=== PATIENT | male | born 1985 | race African-American/Black ===

== ENCOUNTER 2016-12-03 23:58 | Emergency (ER) | payer MEDICAID, OTHER ==
[~2016-12-03] VITALS: Ht 167.6 cm; Wt 65.0 kg
[~2016-12-03 23:58] MED LIST: CIPR500T4 PO; PERC5TAB12 PO
[2016-12-03 23:59] VITALS: BP 161/95; PULSE 66; RESP 14; TEMP 98.7; O2SAT 99
--- NOTE | 2016-12-04 00:23 | PD ---
HPI Chief Complaint: Flank/Kidney Pain Time Seen by Provider: 00:22 Travel History International Travel<30 days: No Contact w/Intl Traveler<30days: No Traveled to known affect area: No History of Present Illness HPI 31-year-old male with history of kidney stone and lithotripsy, presents to the emergency department for evaluation of left flank pain. Anus a constant, sharp , stabbing. This has been going on for the last 2 days. Patient has also had burning with urination. Denies any penile discharge. Patient states he is in a monogamous sexual relationship. Denies any abdominal pain. No nausea or vomiting. Patient has no other symptoms to report. PFSH Past Medical History Medical History: Denies Significant Hx Cancer: No Cardiovascular Problems: No Diabetes: No Diminished Hearing: No Genitourinary: No Hepatitis: No Hiatal Hernia: No Immune Disorder: No Musculoskeletal: No Neurologic: No Psychiatric: No Reproductive: No Respiratory: No Thyroid Disease: No Past Surgical History AICD: No Body Medical Devices: NONE Joint Replacement: No Pacemaker: No Social History Alcohol Use: No Tobacco Use: Yes (1/2) Substance Use: Yes (MARIJUANA) Allergies-Medications (Allergen,Severity, Reaction): Coded Allergies: No Known Allergies (Unverified , 12/04/16) Reported Meds & Prescriptions Reported Meds & Active Scripts Active Reported Percocet 5-325 mg (Oxycodone/Acetaminophen) 1 Tab 1 Tab PO Q6H PRN Cipro (Ciprofloxacin HCl) 500 Mg Tab 500 Mg PO BID Review of Systems Except as stated in HPI: all other systems reviewed are Neg Physical Exam Narrative GENERAL: Well-nourished male patient, ambulatory and in no acute distress SKIN: Focused skin assessment warm/dry. HEAD: Atraumatic. Normocephalic. EYES: Pupils equal and round. No scleral icterus. No injection or drainage. ENT: No nasal bleeding or discharge. Mucous membranes pink and moist. NECK: Trachea midline. No JVD. CARDIOVASCULAR: Regular rate and rhythm. No murmur appreciated. RESPIRATORY: No accessory muscle use. Clear to auscultation. Breath sounds equal bilaterally. GASTROINTESTINAL: Abdomen soft, non-tender, nondistended. Hepatic and splenic margins not palpable. MUSCULOSKELETAL: No obvious deformities. No clubbing. No cyanosis. No edema. Left-sided CVA tenderness. NEUROLOGICAL: Awake and alert. No obvious cranial nerve deficits. Motor grossly within normal limits. Normal speech. PSYCHIATRIC: Appropriate mood and affect; insight and judgment normal. Data Data Last Documented VS Vital Signs Date Time Temp Pulse Resp B/P Pulse Ox O2 Delivery O2 Flow Rate FiO2 12/03/16 23:59 98.7 66 14 161/95 99 Room Air Orders Iv Access Insert/Monitor (12/04/16 00:22) Complete Blood Count With Diff (12/04/16 00:22) Basic Metabolic Panel (Bmp) (12/04/16 00:22) Urinalysis - C+S If Indicated (12/04/16 00:22) Ketorolac Inj (Toradol Inj) (12/04/16 00:30) Sodium Chlor 0.9% 1000 Ml Inj (Ns 1000 M (12/04/16 00:30) Ct Abd/Pel W/O Iv Contrast (12/04/16 ) Urine Culture (12/04/16 00:30) Gc And Chlamydia Pcr (12/04/16 00:59) Ceftriaxone Inj (Rocephin Inj) (12/04/16 01:45) Azithromycin (Zithromax) (12/04/16 01:45) Labs Laboratory Tests Test 12/04/16 00:30 White Blood Count 8.4 TH/MM3 Red Blood Count 5.04 MIL/MM3 Hemoglobin 15.1 GM/DL Hematocrit 45.5 % Mean Corpuscular Volume 90.2 FL Mean Corpuscular Hemoglobin 30.0 PG Mean Corpuscular Hemoglobin 33.3 % Concent Red Cell Distribution Width 13.3 % Platelet Count 208 TH/MM3 Mean Platelet Volume 8.2 FL Neutrophils (%) (Auto) 52.9 % Lymphocytes (%) (Auto) 31.8 % Monocytes (%) (Auto) 11.0 % Eosinophils (%) (Auto) 3.5 % Basophils (%) (Auto) 0.8 % Neutrophils # (Auto) 4.5 TH/MM3 Lymphocytes # (Auto) 2.7 TH/MM3 Monocytes # (Auto) 0.9 TH/MM3 Eosinophils # (Auto) 0.3 TH/MM3 Basophils # (Auto) 0.1 TH/MM3 CBC Comment DIFF FINAL Differential Comment Urine Color YELLOW Urine Turbidity CLOUDY Urine pH 7.0 Urine Specific [place] 1.023 Urine Protein TRACE mg/dL Urine Glucose (UA) NEG mg/dL Urine Ketones NEG mg/dL Urine Occult Blood NEG Urine Nitrite NEG Urine Bilirubin NEG Urine Urobilinogen 2.0 MG/DL Urine Leukocyte Esterase SMALL Urine RBC 2 /hpf Urine WBC 12 /hpf Urine Squamous Epithelial <1 /hpf Cells Urine Amorphous Sediment RARE Urine Mucus FEW /lpf Microscopic Urinalysis Comment CULTURE INDICATED Sodium Level 142 MEQ/L Potassium Level 3.9 MEQ/L Chloride Level 106 MEQ/L Carbon Dioxide Level 28.9 MEQ/L Anion Gap 7 MEQ/L Blood Urea Nitrogen 16 MG/DL Creatinine 1.02 MG/DL Estimat Glomerular Filtration 102 ML/MIN Rate Random Glucose 99 MG/DL Calcium Level 8.9 MG/DL Chlamydia trachomatis DNA NOT DETECTED (PCR) Neisseria gonorrhoeae DNA NOT DETECTED (PCR) MDM Medical Decision Making Medical Screen Exam Complete: Yes Emergency Medical Condition: Yes Medical Record Reviewed: Yes Differential Diagnosis UTI versus renal calculi versus STD versus muscle strain Narrative Course 31-year-old male presents to the emergency department for evaluation left flank pain. Patient does have left-sided CVA tenderness. CBC and BMP are without acute concern. Urinalysis is cloudy with small leukocyte esterase, 12 WBC, few mucus, culture is indicated. GC PCR has been sent. Patient will be treated empirically. He is encouraged to follow-up with primary care provider. He agrees to return immediately with any acute worsening of symptoms. Diagnosis Primary Impression: Flank pain Additional Impression: Dysuria Referrals: Primary Care Physician Patient Instructions: Dysuria (ED), Flank Pain (ED), General Instructions Additional Instructions: Maintain adequate oral hydration Follow-up with primary care provider Return immediately with any acute worsening of symptoms Med/Other Pt SpecificInfo: No Meds Exist/No RX given Disposition: 01 DISCHARGE HOME Condition: Stable Juana Desai LESTER December 04, 2016 00:22
[2016-12-04] MEDS ORDERED: KETOROLAC TROMETHAMINE 30 MG/ML (IVP) VIAL IV PUSH ONE (00:30)
[2016-12-04] MEDS ORDERED: SODIUM CHLOR 0.9% 1000 ML INJ 1,000 ML IV ONE (00:30)
[2016-12-04 00:47] LABS: AUTOMATED NEUTROPHIL # 4.5 TH/MM3 (1.8-7.7); BASOPHIL # 0.1 TH/MM3 (0-0.2); BASOPHIL % 0.8 % (0.0-2.0); EOSINOPHIL # 0.3 TH/MM3 (0-0.4); EOSINOPHIL % 3.5 % (0.0-4.0); HEMATOCRIT 45.5 % (39.0-51.0); HEMO FLAGS DIFF FINAL; LYMPH % 31.8 % (9.0-44.0); LYMPHOCYTE # 2.7 TH/MM3 (1.0-4.8); MEAN CELL VOLUME 90.2 FL (80.0-100.0); MEAN CORPUSCULAR HGB CONC 33.3 % (32.0-36.0); NEUT % 52.9 % (16.0-70.0); PLATELET COUNT 208 TH/MM3 (150-450); RED BLOOD COUNT 5.04 MIL/MM3 (4.50-5.90); RED CELL DISTRIBUTION WIDTH 13.3 % (11.6-17.2); WHITE BLOOD COUNT 8.4 TH/MM3 (4.0-11.0)
[2016-12-04 00:54] LABS: BLOOD, URINE NEG (NEG); COMMENT (UR) CULTURE INDICATED; CULTURE IF INDICATED CULTURE INDICATED; GLUCOSE,URINE NEG (NEG); KETONE, URINE NEG (NEG); MUCUS URINE FEW /lpf (OCC); NITRITE,URINE NEG (NEG); SQUAMOUS EPITHELIAL CELL URINE <1 /hpf (0-5); URINE COLOR YELLOW (YELLW/STRAW)
[2016-12-04 01:13] LABS: BICARBONATE 28.9 MEQ/L (21.0-32.0); POTASSIUM 3.9 MEQ/L (3.5-5.1)
--- NOTE | 2016-12-04 01:31 | RADRPT ---
EXAM DATE/TIME: 12/04/2016 01:16 [facility] COMPARISON: No previous studies available for comparison. INDICATIONS : Left flank pain past 2 days. ORAL CONTRAST: No oral contrast ingested. RADIATION DOSE: 4.66 CTDIvol (mGy) MEDICAL HISTORY : Renal calculi. SURGICAL HISTORY : None. ENCOUNTER: Initial ACUITY: 2 days PAIN SCALE: 6/10 LOCATION: Left flank TECHNIQUE: Volumetric scanning of the abdomen and pelvis was performed. Using automated exposure control and ad justment of the mA and/or kV according to patient size, radiation dose was kept as low as reasonably achievable to obtain optimal diagnostic quality images. The lack of IV contrast limits the diagnosis for certain organ pathology. FINDINGS: LOWER LUNGS: The visualized lower lungs are clear. LIVER: Homogeneous density without lesion. There is no dilation of the biliary tree. No calcified gallston es. SPLEEN: Normal size without lesion. PANCREAS: Within normal limits. KIDNEYS: Normal in size and shape. There is no mass, stone, or hydronephrosis. ADRENAL GLANDS: Within normal limits. VASCULAR: There is no aortic aneurysm. BOWEL/MESENTERY: The stomach, small bowel, and colon demonstrate no acute abnormality. There is no free intraperitone al air or fluid. The appendix is unremarkable. There is stool in the colon. No inflammatory changes. ABDOMINAL WALL: Within normal limits. RETROPERITONEUM: There is no lymphadenopathy. BLADDER: No wall thickening or mass. REPRODUCTIVE: Within normal limits. INGUINAL: There is no lymphadenopathy or hernia. MUSCULOSKELETAL: Within normal limits for patient age. CONCLUSION: 1. No evidence of calcified renal stones or hydronephrosis. 2. Unremarkable examination for patient's age. Johann Zuluaga MD on December 04, 2016 at 1:28 Board Certified Radiologist. This report was verified electronically.
[2016-12-04] MEDS ORDERED: AZITHROMYCIN 250 MG TAB PO ONE (01:45)
[2016-12-04] MEDS ORDERED: cefTRIAXone 250 MG VIAL IM ONE (01:45)
[2016-12-04 03:13] LABS: CHLAMYDIA PCR NOT DETECTED (NOT DETECT); NEISSERIA PCR NOT DETECTED (NOT DETECT)
== END 2016-12-04 02:22 | disposition home or self-care (01) ==
LOC: NEPK 23:58
DX: R10.9 Unspecified abdominal pain (principal); R30.0 Dysuria; F17.210 Nicotine dependence, cigarettes, uncomplicated; F12.90 Cannabis use, unspecified, uncomplicated
CPT/HCPCS: 74176; 80048; 81001; 85025; 87086; 87491; 87591; 96361; 96372; 96374; 99284; J0696; J1885; J7030

== ENCOUNTER 2017-02-26 10:07 | Emergency (ER) | payer MEDICAID ==
[2017-02-26 10:14] VITALS: BP 128/62; PULSE 81; RESP 15; TEMP 98.4; O2SAT 99
[2017-02-26] MEDS ORDERED: AZITHROMYCIN 250 MG TAB PO ONE (10:30)
[2017-02-26] MEDS ORDERED: SODIUM CHLORIDE 0.9% FLUSH 10 ML FLUSH IVF PRN (10:30)
[2017-02-26] MEDS ORDERED: LIDOCAINE HCL 1% 50 ML VIAL XX ONE (10:30)
--- NOTE | 2017-02-26 10:30 | PD ---
HPI Chief Complaint: Complaint Time Seen by Provider: 10:21 Travel History International Travel<30 days: No Contact w/Intl Traveler<30days: No Traveled to known affect area: No History of Present Illness HPI 32-year-old Afro-[place] male presents the emergency department with history of dysuria, mild bilateral flank pain, and suprapubic tenderness and cramping, as well as bilateral mild tenderness to the testicles. Patient denies recent change in sexual partner. He is blaming his symptoms on lifting something heavy at work. Patient has no fever, chills, nausea, vomiting, or diarrhea. Patient has no known drug allergies. PFSH Past Medical History Cancer: No Cardiovascular Problems: No Diabetes: No Diminished Hearing: No Genitourinary: No Hepatitis: No Hiatal Hernia: No Immune Disorder: No Musculoskeletal: No Neurologic: No Psychiatric: No Reproductive: No Respiratory: No Thyroid Disease: No Past Surgical History AICD: No Body Medical Devices: NONE Joint Replacement: No Pacemaker: No Social History Alcohol Use: No Tobacco Use: Yes (1/2) Substance Use: Yes (MARIJUANA) Allergies-Medications (Allergen,Severity, Reaction): Coded Allergies: No Known Allergies (Unverified , 02/26/17) Reported Meds & Prescriptions Reported Meds & Active Scripts Active Pyridium (Phenazopyridine HCl) 100 Mg Tab 100 Mg PO Q8HR Cephalexin 500 Mg Cap 500 Mg PO Q8H Review of Systems Except as stated in HPI: all other systems reviewed are Neg General / Constitutional: No: Fever Eyes: No: Visual changes HENT: No: Headaches Cardiovascular: No: Chest Pain or Discomfort Respiratory: No: Shortness of Breath Gastrointestinal: No: Abdominal Pain Genitourinary: Positive: Urgency, Dysuria, Flank Pain, Other (mild bilateral testicular pain) Musculoskeletal: No: Pain Skin: No Rash Neurologic: No: Weakness Psychiatric: No: Depression Endocrine: No: Polydipsia Hematologic/Lymphatic: No: Easy Bruising Physical Exam Narrative GENERAL: Patient appears no acute distress. SKIN: Warm and dry. Normal color. Normal turgor. No rashes appreciated on the genitalia. HEAD: Atraumatic. Normocephalic. EYES: Pupils equal and round. No scleral icterus. No injection or drainage. ENT: No nasal bleeding or discharge. Mucous membranes pink and moist. NECK: Trachea midline. No JVD. CARDIOVASCULAR: Regular rate and rhythm. RESPIRATORY: No accessory muscle use. Clear to auscultation. Breath sounds equal bilaterally. GASTROINTESTINAL: Abdomen soft, non-tender, nondistended. Hepatic and splenic margins not palpable. Mild bilateral CVA tenderness. GENITAL: No obvious hernia. Patient has bilateral mild tenderness to the epididymis, but no testicular swelling or tenderness. Penis is normal without discharge or rash. MUSCULOSKELETAL: Extremities without clubbing, cyanosis, or edema. No obvious deformities. NEUROLOGICAL: Awake and alert. No obvious cranial nerve deficits. Motor grossly within normal limits. Five out of 5 muscle strength in the arms and legs. Normal speech. PSYCHIATRIC: Appropriate mood and affect; insight and judgment normal. Data Data Last Documented VS Vital Signs Date Time Temp Pulse Resp B/P Pulse Ox O2 Delivery O2 Flow Rate FiO2 02/26/17 10:14 98.4 81 15 128/62 99 Orders Urinalysis - C+S If Indicated (02/26/17 10:18) Gc And Chlamydia Pcr (02/26/17 10:18) Sodium Chloride 0.9% Flush (Ns Flush) (02/26/17 10:30) Azithromycin (Zithromax) (02/26/17 10:30) Ceftriaxone Inj (Rocephin Inj) (02/26/17 10:30) Lidocaine 1% Inj (50 Ml) (Xylocaine 1% I (02/26/17 10:30) Urine Culture (02/26/17 10:25) Labs Laboratory Tests Test 02/26/17 10:25 Urine Color YELLOW Urine Turbidity HAZY Urine pH 6.0 Urine Specific [place] 1.025 Urine Protein TRACE mg/dL Urine Glucose (UA) NEG mg/dL Urine Ketones NEG mg/dL Urine Occult Blood NEG Urine Nitrite NEG Urine Bilirubin NEG Urine Urobilinogen LESS THAN 2.0 MG/DL Urine Leukocyte Esterase LARGE Urine RBC 5 /hpf Urine WBC 19 /hpf Urine Renal Epithelial Cells <1 /hpf Urine Mucus FEW /lpf Microscopic Urinalysis Comment CULTURE INDICATED MDM Medical Decision Making Medical Screen Exam Complete: Yes Emergency Medical Condition: Yes Differential Diagnosis Urinary tract infection. Dysuria. Possible STD. Urinary retention. Prostatitis. Narrative Course Urinalysis is sent to the lab. Gonorrhea and chlamydia testing is sent. Patient is given Rocephin 1 g IM. Patient is given azithromycin 1 g by mouth. Urinalysis shows signs of urinary tract infection. Urinary culture is placed. GC testing is still pending. Patient is treated with Keflex 500 mg 3 times a day for 10 days. Patient is also given Pyridium 100 mg 3 times a day when necessary dysuria. # 15. Patient is to follow-up with [facility] or [facility]. Patient can return to emergency Department with worsening symptoms as necessary. Diagnosis Primary Impression: Dysuria Additional Impression: Urinary tract infection Qualified Code: N30.00 - Acute cystitis without hematuria Referrals: [facility] 1 week [facility] 1 week Patient Instructions: General Instructions, Urinary Tract Infection in Men (DC) Additional Instructions: Gonorrhea and chlamydia testing is sent. Patient is given Rocephin 1 g IM. Patient is given azithromycin 1 g by mouth. Urinalysis shows signs of urinary tract infection. Urinary culture is placed. GC testing is still pending. Patient is treated with Keflex 500 mg 3 times a day for 10 days. Patient is also given Pyridium 100 mg 3 times a day when necessary dysuria. # 15. Patient is to follow-up with [facility] or [facility]. Patient can return to emergency Department with worsening symptoms as necessary. Med/Other Pt SpecificInfo: Prescription(s) given Scripts Phenazopyridine (Pyridium)100 Mg Abs060 Mg PO Q8HR #15 TAB Prov:Laura Ray MD 02/26/17 Cephalexin 500 Mg Bor459 Mg PO Q8H #30 CAP Prov:Laura Ray MD 02/26/17 Disposition: 01 DISCHARGE HOME Condition: Stable Juan Vickers Feb 26, 2017 10:30
[2017-02-26 10:49] LABS: BLOOD, URINE NEG (NEG); GLUCOSE,URINE NEG (NEG); KETONE, URINE NEG (NEG); MUCUS URINE FEW /lpf (OCC); NITRITE,URINE NEG (NEG); RENAL EPITHELIAL CELLS <1 /hpf; URINE COLOR YELLOW (YELLW/STRAW)
[2017-02-26 10:50] LABS: COMMENT (UR) CULTURE INDICATED; CULTURE IF INDICATED CULTURE INDICATED
[2017-02-26] MEDS ORDERED: CEPH500C PO (10:54)
[2017-02-26] MEDS ORDERED: PHEN0.4T PO (10:54)
[2017-02-26 13:11] LABS: CHLAMYDIA PCR NOT DETECTED (NOT DETECT); NEISSERIA PCR NOT DETECTED (NOT DETECT)
== END 2017-02-26 11:37 | disposition home or self-care (01) ==
LOC: NEPD 10:07
DX: N30.00 Acute cystitis without hematuria (principal)
CPT/HCPCS: 81001; 87086; 87491; 87591; 96372; 99284; J0696

== ENCOUNTER 2017-06-22 20:45 | Emergency (ER) | payer SELFPAY ==
[~2017-06-22 20:45] MED LIST changes: +CEPH500C PO; -CIPR500T4 PO; -PERC5TAB12 PO; +PHEN0.4T PO
[2017-06-22 20:47] VITALS: BP 147/77; PULSE 87; RESP 16; TEMP 97.9; O2SAT 100
--- NOTE | 2017-06-22 21:43 | RADRPT ---
EXAM DATE/TIME: 06/22/2017 21:14 [facility] COMPARISON: CT ABDOMEN & PELVIS W/O CONTRAST, December 04, 2016, 1:16. INDICATIONS : Left flank pain for three days. ORAL CONTRAST: No oral contrast ingested. RADIATION DOSE: 6.71 CTDIvol (mGy) MEDICAL HISTORY : Renal calculi. SURGICAL HISTORY : lithrotripsy ENCOUNTER: Initial ACUITY: 3 days PAIN SCALE: 8/10 LOCATION: Left flank TECHNIQUE: Volumetric scanning of the abdomen and pelvis was performed. Using automated exposure control and ad justment of the mA and/or kV according to patient size, radiation dose was kept as low as reasonably achievable to obtain optimal diagnostic quality images. DICOM format image data is available electro nically for review and comparison. FINDINGS: LOWER LUNGS: The visualized lower lungs are clear. LIVER: Homogeneous density without lesion. There is no dilation of the biliary tree. No calcified gallston es. SPLEEN: Normal size without lesion. PANCREAS: Within normal limits. KIDNEYS: Normal in size and shape. There is no mass, stone, or hydronephrosis. ADRENAL GLANDS: Within normal limits. VASCULAR: There is no aortic aneurysm. BOWEL/MESENTERY: The stomach, small bowel, and colon demonstrate no acute abnormality. There is no free intraperitone al air or fluid. Appendix is identified and is radiographically normal. ABDOMINAL WALL: Within normal limits. RETROPERITONEUM: There is no lymphadenopathy. BLADDER: No wall thickening or mass. REPRODUCTIVE: Within normal limits. INGUINAL: There is no lymphadenopathy or hernia. MUSCULOSKELETAL: Within normal limits for patient age. CONCLUSION: Negative exam. No acute intraperitoneal or pelvic process to explain current clinical symptoms. Kalin Warren MD on June 22, 2017 at 21:39 Board Certified Radiologist. This report was verified electronically.
[2017-06-22 22:37] LABS: AUTOMATED NEUTROPHIL # 4.3 TH/MM3 (1.8-7.7); BASOPHIL % 0.4 % (0.0-2.0); EOSINOPHIL # 0.2 TH/MM3 (0-0.4); EOSINOPHIL % 2.5 % (0.0-4.0); HEMATOCRIT 40.7 % (39.0-51.0); HEMO FLAGS DIFF FINAL; LYMPH % 32.7 % (9.0-44.0); LYMPHOCYTE # 2.6 TH/MM3 (1.0-4.8); MEAN CELL VOLUME 90.5 FL (80.0-100.0); MEAN CORPUSCULAR HEMOGLOBIN 30.5 PG (27.0-34.0); MEAN CORPUSCULAR HGB CONC 33.7 % (32.0-36.0); NEUT % 53.4 % (16.0-70.0); PLATELET COUNT 195 TH/MM3 (150-450); RED CELL DISTRIBUTION WIDTH 13.5 % (11.6-17.2); WHITE BLOOD COUNT 8.1 TH/MM3 (4.0-11.0)
[2017-06-22 22:40] LABS: BLOOD, URINE NEG (NEG); COMMENT (UR) CULT NOT INDICATED; CULTURE IF INDICATED CULT NOT INDICATED; GLUCOSE,URINE NEG (NEG); KETONE, URINE NEG (NEG); NITRITE,URINE NEG (NEG); PH, URINE 6.5 (5.0-8.5); SQUAMOUS EPITHELIAL CELL URINE <1 /hpf (0-5); URINE COLOR LIGHT-YELLOW (YELLW/STRAW)
[2017-06-22 22:52] LABS: BICARBONATE 26.9 MEQ/L (21.0-32.0); POTASSIUM 3.6 MEQ/L (3.5-5.1)
[2017-06-23] MEDS ORDERED: ROBA750T PO (00:20)
[2017-06-23] MEDS ORDERED: IBUP-232 PO (00:20)
--- NOTE | 2017-06-23 00:20 | PD ---
HPI Chief Complaint: Flank/Kidney Pain Time Seen by Provider: 00:12 Travel History International Travel<30 days: No Contact w/Intl Traveler<30days: No Traveled to known affect area: No History of Present Illness HPI 32-year-old male complains of left flank pain. Patient states that the symptoms started 3 days ago. Patient states that the pain is sharp pain localized to left flank area. Patient denies any pain radiation. Patient states that he has urinary frequency for the past 3 days. Patient denies any dysuria. Patient denies any penile discharge. Patient denies any fever chills. Patient denies any nausea vomiting diarrhea. Patient states that he has in the past. She denies any recent injury. On a scale of 1-10 the pain is an 8. PFSH Past Medical History Cancer: No Cardiovascular Problems: No Diabetes: No Diminished Hearing: No Genitourinary: No Hepatitis: No Hiatal Hernia: No Hypertension: No Immune Disorder: No Kidney Stones: Yes Musculoskeletal: No Neurologic: No Psychiatric: No Reproductive: No Respiratory: No Immunizations Current: No Thyroid Disease: No Influenza Vaccination: Yes Past Surgical History AICD: No Body Medical Devices: NONE Joint Replacement: No Pacemaker: No Other Surgery: Yes (LITHOTRIPSY ) Social History Alcohol Use: No Tobacco Use: Yes (07/26) Substance Use: Yes (MARIJUANA) Allergies-Medications (Allergen,Severity, Reaction): Coded Allergies: No Known Allergies (Verified Adverse Reaction, Unknown, 06/22/17) Reported Meds & Prescriptions Reported Meds & Active Scripts Active Pyridium (Phenazopyridine HCl) 100 Mg Tab 100 Mg PO Q8HR Cephalexin 500 Mg Cap 500 Mg PO Q8H Review of Systems General / Constitutional: No: Fever Eyes: No: Visual changes HENT: No: Headaches Cardiovascular: No: Chest Pain or Discomfort Respiratory: No: Shortness of Breath Gastrointestinal: No: Abdominal Pain Genitourinary: No: Dysuria Musculoskeletal: No: Pain Skin: No Rash Neurologic: No: Weakness Psychiatric: No: Depression Endocrine: No: Polydipsia Hematologic/Lymphatic: No: Easy Bruising Physical Exam Narrative GENERAL: Well-nourished, well-developed patient. SKIN: Focused skin assessment warm/dry. HEAD: Normocephalic. EYES: No scleral icterus. No injection or drainage. NECK: Supple, trachea midline. No JVD or lymphadenopathy. CARDIOVASCULAR: Regular rate and rhythm without murmurs, gallops, or rubs. RESPIRATORY: Breath sounds equal bilaterally. No accessory muscle use. GASTROINTESTINAL: Abdomen soft, non-tender, nondistended. MUSCULOSKELETAL: No cyanosis, or edema. BACK: Nontender without obvious deformity. No CVA tenderness. Patient has moderate tenderness on palpation left flank area. Data Data Last Documented VS Vital Signs Date Time Temp Pulse Resp B/P (MAP) Pulse Ox O2 Delivery O2 Flow Rate FiO2 06/22/17 20:47 97.9 87 16 147/77 (100) 100 Room Air Orders Orders Urinalysis - C+S If Indicated (06/22/17 21:07) Complete Blood Count With Diff (06/22/17 21:07) Basic Metabolic Panel (Bmp) (06/22/17 21:07) Ct Abd/Pel W/O Iv Contrast (06/22/17 ) Labs Laboratory Tests Test 06/22/17 21:20 06/22/17 21:35 Urine Color LIGHT-YELLOW Urine Turbidity CLEAR Urine pH 6.5 Urine Specific [place] 1.007 Urine Protein NEG mg/dL Urine Glucose (UA) NEG mg/dL Urine Ketones NEG mg/dL Urine Occult Blood NEG Urine Nitrite NEG Urine Bilirubin NEG Urine Urobilinogen LESS THAN 2.0 MG/DL Urine Leukocyte Esterase TRACE Urine WBC 4 /hpf Urine Squamous Epithelial Cells <1 /hpf Microscopic Urinalysis Comment CULT NOT INDICATED White Blood Count 8.1 TH/MM3 Red Blood Count 4.50 MIL/MM3 Hemoglobin 13.7 GM/DL Hematocrit 40.7 % Mean Corpuscular Volume 90.5 FL Mean Corpuscular Hemoglobin 30.5 PG Mean Corpuscular Hemoglobin Concent 33.7 % Red Cell Distribution Width 13.5 % Platelet Count 195 TH/MM3 Mean Platelet Volume 8.1 FL Neutrophils (%) (Auto) 53.4 % Lymphocytes (%) (Auto) 32.7 % Monocytes (%) (Auto) 11.0 % Eosinophils (%) (Auto) 2.5 % Basophils (%) (Auto) 0.4 % Neutrophils # (Auto) 4.3 TH/MM3 Lymphocytes # (Auto) 2.6 TH/MM3 Monocytes # (Auto) 0.9 TH/MM3 Eosinophils # (Auto) 0.2 TH/MM3 Basophils # (Auto) 0.0 TH/MM3 CBC Comment DIFF FINAL Differential Comment Blood Urea Nitrogen 11 MG/DL Creatinine 0.81 MG/DL Random Glucose 81 MG/DL Calcium Level 8.8 MG/DL Sodium Level 142 MEQ/L Potassium Level 3.6 MEQ/L Chloride Level 108 MEQ/L Carbon Dioxide Level 26.9 MEQ/L Anion Gap 7 MEQ/L Estimat Glomerular Filtration Rate 132 ML/MIN MDM Medical Decision Making Medical Screen Exam Complete: Yes Emergency Medical Condition: Yes Interpretation(s) Last Impressions Abdomen/Pelvis CT 06/22/17 0000 Signed Impressions: Service Date/Time: Thursday, June 22, 2017 21:14 - CONCLUSION: Negative exam. No acute intraperitoneal or pelvic process to explain current clinical symptoms. Kalin Warren MD 12:18 AM. CBC within normal limit. BMP within normal limit. UA is negative. Differential Diagnosis Differential diagnosis including musculoskeletal, nephrolithiasis, pyelonephritis, colitis. Narrative Course 32-year-old male with left flank pain. Toradol 30 mg IV. Diagnosis Primary Impression: Left flank pain Patient Instructions: General Instructions Additional Instructions: Take medication as needed for pain. Follow-up local physician. Return if persistent problem or worse. Med/Other Pt SpecificInfo: Prescription(s) given Scripts Methocarbamol (Robaxin) 750 Mg Tab 750 MG PO QID for Muscle Spasm, #40 TAB 0 Refills Prov: Esteban Park MD 06/23/17 Ibuprofen (Ibuprofen) 600 Mg Tab 600 MG PO TID for Pain, #60 TAB 0 Refills Prov: Esteban Park MD 06/23/17 Disposition: 01 DISCHARGE HOME Condition: Stable Esteban Park MD Jun 23, 2017 00:20
[2017-06-23] MEDS ORDERED: KETOROLAC TROMETHAMINE 30 MG/ML (IVP) VIAL IV PUSH ONE (00:30)
== END 2017-06-23 00:33 | disposition home or self-care (01) ==
LOC: NEPE 20:45
DX: R10.9 Unspecified abdominal pain (principal); F17.200 Nicotine dependence, unspecified, uncomplicated
CPT/HCPCS: 74176; 80048; 81001; 85025; 96374; 99285; J1885